=== PATIENT | female | born 1970 | race Caucasian/White ===

== ENCOUNTER 2021-02-23 19:36 | Emergency (ER) | payer BC ==
[2021-02-23 20:17] VITALS: O2SAT 99
[2021-02-23 20:30] LABS: Absolute Neutrophil Ct (ANC) 4.08 (1.4-6.9); Basophil (Absolute #) 0.07 (0-0.4); Eosinophil (Absolute #) 2.02 (0-0.5); Hematocrit 42.6 % (35-47); Hemoglobin 14.1 gm/dl (12.0-16.0); Lymphocyte (Absolute #) 3.63 (1.0-4.6); Lymphocytes % 34.1 % (24.0-44.0); Mean Cell Volume 90.8 fl (78-100); Mean Corpuscular Hemoglobin 30.1 pg (26-32); Mean Corpuscular Hgb Concent. 33.1 g/dl (32-36); Mean Platelet Volume 10.8 fl (7.5-11.0); Monocyte (Absolute #) 0.84 (0.0-1.3); Monocytes % 7.9 % (0.0-12.0); Neutrophil % 38.3 % (36.0-66.0); Platelet Count 342 K/mm3 (150-450); Red Blood Count 4.69 M/mm3 (4.1-5.4); Red Cell Distribution Width 13.9 % (11.5-14.0); White Blood Count 10.6 K/mm3 (4.0-10.5)
[2021-02-23 20:41] LABS: Appearance SLIGHTLY CLOUDY (CLEAR); Bilirubin NEGATIVE (NEGATIVE); Blood SMALL Ery/ul (0-5); Glucose NEGATIVE (NEGATIVE); Ketones NEGATIVE (NEGATIVE); Leukocyte Esterase NEGATIVE (NEGATIVE); Nitrite NEGATIVE (NEGATIVE); Protein,Urine Dip NEGATIVE (Negative); RBC 0-2 /HPF (0-2); Specific Gravity 1.003 (1.005-1.025); Urobilinogen NEGATIVE mg/dL (0-1)
--- NOTE | 2021-02-23 20:52 | ERPHSYRPT ---
- History of Present Illness Time Seen by Provider: 02/23/21 19:44 Source: patient Exam Limitations: no limitations Patient Subjective Stated Complaint: pt states her blood pressure has been high today and she hasnt been feeling well today. pressure was 185/100 Triage Nursing Assessment: pt alert and oriented, answers questions approp. pt ambulatory with steady gait noted. respirations nonlabored with lungs cta. skin warm and dry. heart rate 80 on monitor, sinus rhythm. Physician History: 50 years old female presented to the ER with chief complaint of elevated blood pressure. Patient reports this morning she felt as if she was having some dizziness which lasted for almost an hour and improved. She checked her blood pressure it was 180 systolic. He denies any chest pain palpitations or shortness of breath. She came back from work and rechecked her blood pressure it was still high and currently is 197 systolic. Denies any [id number] cough congestion medication intake but does admit to taking extra salt lately. Per patient her routine blood pressure is well controlled. Timing/Duration: today, constant, gradual onset Severity: moderate Associated Symptoms: No nausea, No vomiting, No abdominal pain, No shortness of breath, No cough, No chest pain, No headaches, No malaise, No weakness Allergies/Adverse Reactions: sulfamethoxazole [From Bactrim] Allergy (Intermediate, Verified 02/23/21 20:17) Rash trimethoprim [From Bactrim] Allergy (Intermediate, Verified 02/23/21 20:17) Rash Hx Tetanus, Diphtheria Vaccination/Date Given: No Hx Influenza Vaccination/Date Given: No Hx Pneumococcal Vaccination/Date Given: No Immunizations Up to Date: No Travel Risk - International Travel Have you traveled outside of the country in past 3 weeks: No - Coronavirus Screening Are you exhibiting any of the following symptoms?: No Close contact with a COVID-19 positive Pt in past 14-21 Days: No - Vaccine Status Have you recieved a Covid-19 vaccination: No - Review of Systems Constitutional: No Symptoms Eyes: No Symptoms Ears, Nose, & Throat: No Symptoms Respiratory: No Symptoms Cardiac: No Symptoms Abdominal/Gastrointestinal: No Symptoms Genitourinary Symptoms: No Symptoms Musculoskeletal: No Symptoms Skin: No Symptoms Neurological: No Symptoms Psychological: No Symptoms Endocrine: No Symptoms Hematologic/Lymphatic: No Symptoms Immunological/Allergic: No Symptoms - Past Medical History Pertinent Past Medical History: No - Past Surgical History Past Surgical History: Yes Gastrointestinal: Appendectomy Other Surgical History: 3 vaginal deliveries,. iud removed december 2020 - Social History Smoking Status: Never smoker Exposure to second hand smoke: Yes Drug Use: none Patient Lives Alone: No - Female History Hx Last Menstrual Period: 3 weeks ago - Nursing Vital Signs Nursing Vital Signs: Initial Vital Signs Temperature 99.2 F 02/23/21 19:52 Pulse Rate 82 02/23/21 19:52 Respiratory Rate 16 02/23/21 19:52 Blood Pressure 197/103 02/23/21 19:52 O2 Sat by Pulse Oximetry 99 02/23/21 19:52 Pain Scale Pain Intensity 0 - Physical Exam General Appearance: no apparent distress, alert Eye Exam: PERRL/EOMI, eyes nml inspection Ears, Nose, Throat Exam: normal ENT inspection, TMs normal, pharynx normal, moist mucous membranes Neck Exam: normal inspection, non-tender, supple, full range of motion Respiratory Exam: normal breath sounds, lungs clear Cardiovascular Exam: regular rate/rhythm, normal heart sounds Gastrointestinal/Abdomen Exam: soft, normal bowel sounds, No tenderness Back Exam: normal inspection, normal range of motion, No CVA tenderness Extremity Exam: normal inspection, normal range of motion, pelvis stable Neurologic Exam: alert, oriented x 3, cooperative, failure analysis engineer II-XII nml as tested, normal mood/affect, nml cerebellar function, nml station & gait, sensation nml, No motor deficits Skin Exam: normal color SpO2 Interpretation: normal SpO2: 99 O2 Delivery: Room Air Ordered Tests: Active Orders 24 hr Category Date Time Status Door Opener STAT Care 02/23/21 20:07 Active EKG-ER Only STAT Care 02/23/21 20:06 Active IV Insertion STAT Care 02/23/21 20:06 Active CHEST 1 VIEW (PORTABLE) Stat Exams 02/23/21 20:07 Taken CBC W DIFF Stat Lab 02/23/21 20:20 Completed CMP Stat Lab 02/23/21 20:20 Completed NT PRO BNP Stat Lab 02/23/21 20:20 Completed TROPONIN Q3H Lab 02/23/21 20:20 Completed TROPONIN Q3H Lab 02/23/21 23:15 Ordered TROPONIN Q3H Lab 02/24/21 02:15 Ordered TROPONIN Q3H Lab 02/24/21 05:15 Ordered TROPONIN Q3H Lab 02/24/21 08:15 Ordered UA W/RFX UR CULTURE Stat Lab 02/23/21 20:20 Completed Medication Summary Discontinued Medications Generic Name Dose Route Start Last Admin Trade Name Yovany PRHeena Reason Stop Dose Admin Clonidine 0.2 mg 02/23/21 21:07 02/23/21 21:11 Clonidine Hcl 0.1 Mg Tablet PO 02/23/21 21:08 0.2 mg STAT ONE Administration Clonidine Confirm 02/23/21 21:10 Clonidine Hcl 0.1 Mg Tablet Administered 02/23/21 21:11 Dose 0.2 mg .ROUTE .STK-MED ONE Lab/Rad Data: Laboratory Result Diagrams 02/23/21 20:20 02/23/21 20:20 Laboratory Results 02/23/21 02/23/21 02/23/21 Range/Units 20:20 20:20 20:20 WBC (4.0-10.5) K/mm3 RBC (4.1-5.4) M/mm3 Hgb (12.0-16.0) gm/dl Hct (35-47) % MCV (78-100) fl MCH (26-32) pg MCHC (32-36) g/dl RDW (11.5-14.0) % Plt Count (150-450) K/mm3 MPV (7.5-11.0) fl Gran % (36.0-66.0) % Eos # (Auto) (0-0.5) Absolute Lymphs (auto) (1.0-4.6) Absolute Monos (auto) (0.0-1.3) Lymphocytes % (24.0-44.0) % Monocytes % (0.0-12.0) % Eosinophils % (0.00-5.0) % Basophils % (0.0-0.4) % Absolute Granulocytes (1.4-6.9) Basophils # (0-0.4) Sodium 140 (137-145) mmol/L Potassium 3.7 (3.5-5.1) mmol/L Chloride 103 (98-107) mmol/L Carbon Dioxide 27 (22-30) mmol/L Anion Gap 13.0 (5-15) MEQ/L BUN 11 (7-17) mg/dL Creatinine 0.82 (0.52-1.04) mg/dL Estimated GFR > 60.0 ML/MIN Glucose 89 (74-106) mg/dL Calcium 9.5 (8.4-10.2) mg/dL Total Bilirubin 0.50 (0.2-1.3) mg/dL AST 30 (14-36) U/L ALT 28 (0-35) U/L Alkaline Phosphatase 88 (38-126) U/L Troponin I < 0.012 (0.000-0.034) ng/mL NT-Pro-B Natriuret Pep 49.1 (0-900) pg/mL Serum Total Protein 8.0 (6.3-8.2) g/dL Albumin 4.5 (3.5-5.0) g/dL Urine Color YELLOW (YELLOW) Urine Appearance SLIGHTLY CLOUDY (CLEAR) Urine pH 6.0 (5-6) Ur Specific [place] 1.003 (1.005-1.025) Urine Protein NEGATIVE (Negative) Urine Ketones NEGATIVE (NEGATIVE) Urine Blood SMALL (0-5) [place]/ul Urine Nitrite NEGATIVE (NEGATIVE) Urine Bilirubin NEGATIVE (NEGATIVE) Urine Urobilinogen NEGATIVE (0-1) mg/dL Ur Leukocyte Esterase NEGATIVE (NEGATIVE) Urine WBC (Auto) NONE (0-5) /HPF Urine RBC (Auto) 0-2 (0-2) /HPF U Epithel Cells (Auto) NONE (FEW) /HPF Urine Bacteria (Auto) NONE (NEGATIVE) /HPF Urine Culture Reflexed NO (NO) Urine Glucose NEGATIVE (NEGATIVE) mg/dL 02/23/21 Range/Units 20:20 WBC 10.6 H (4.0-10.5) K/mm3 RBC 4.69 (4.1-5.4) M/mm3 Hgb 14.1 (12.0-16.0) gm/dl Hct 42.6 (35-47) % MCV 90.8 (78-100) fl MCH 30.1 (26-32) pg MCHC 33.1 (32-36) g/dl RDW 13.9 (11.5-14.0) % Plt Count 342 (150-450) K/mm3 MPV 10.8 (7.5-11.0) fl Gran % 38.3 (36.0-66.0) % Eos # (Auto) 2.02 H (0-0.5) Absolute Lymphs (auto) 3.63 (1.0-4.6) Absolute Monos (auto) 0.84 (0.0-1.3) Lymphocytes % 34.1 (24.0-44.0) % Monocytes % 7.9 (0.0-12.0) % Eosinophils % 19.0 H (0.00-5.0) % Basophils % 0.7 (0.0-0.4) % Absolute Granulocytes 4.08 (1.4-6.9) Basophils # 0.07 (0-0.4) Sodium (137-145) mmol/L Potassium (3.5-5.1) mmol/L Chloride (98-107) mmol/L Carbon Dioxide (22-30) mmol/L Anion Gap (5-15) MEQ/L BUN (7-17) mg/dL Creatinine (0.52-1.04) mg/dL Estimated GFR ML/MIN Glucose (74-106) mg/dL Calcium (8.4-10.2) mg/dL Total Bilirubin (0.2-1.3) mg/dL AST (14-36) U/L ALT (0-35) U/L Alkaline Phosphatase (38-126) U/L Troponin I (0.000-0.034) ng/mL NT-Pro-B Natriuret Pep (0-900) pg/mL Serum Total Protein (6.3-8.2) g/dL Albumin (3.5-5.0) g/dL Urine Color (YELLOW) Urine Appearance (CLEAR) Urine pH (5-6) Ur Specific [place] (1.005-1.025) Urine Protein (Negative) Urine Ketones (NEGATIVE) Urine Blood (0-5) [place]/ul Urine Nitrite (NEGATIVE) Urine Bilirubin (NEGATIVE) Urine Urobilinogen (0-1) mg/dL Ur Leukocyte Esterase (NEGATIVE) Urine WBC (Auto) (0-5) /HPF Urine RBC (Auto) (0-2) /HPF U Epithel Cells (Auto) (FEW) /HPF Urine Bacteria (Auto) (NEGATIVE) /HPF Urine Culture Reflexed (NO) Urine Glucose (NEGATIVE) mg/dL - Progress Progress: improved Progress Note: 02/23/21 22:11 Patient has nonfocal neuro exam throughout stay in the ER. EKG showed normal sinus rhythm without any ischemic changes. Negative troponin, grossly unremarkable chemistries. Chest x-ray reviewed by me did not reveal any obvious cardiopulmonary findings. Official report is pending. Given clonidine and blood pressure improved. I believe patient has hypertension and will start her on low-dose Cozaar and outpatient follow-up. Recommended low-salt diet and exercise. Discussed signs symptoms of worsening needing return to ER which she seems understanding. Counseled pt/family regarding: lab results, diagnosis, need for follow-up, rad results - Departure Departure Disposition: Home Clinical Impression: Uncontrolled hypertension Condition: Stable Critical Care Time: No Referrals: CHRISTEL GASTELUM [Primary Care Provider] - Follow Up with PCP/3 days Instructions: Malignant Hypertension (DC) Additional Instructions: Monitor your blood pressure regularly, keep a log and follow-up with primary care for reevaluation. Take low-salt diet, regular exercise. Take your blood pressure medications regularly. Do not take blood pressure medication if your systolic blood pressure is less than 120. Prescriptions: Losartan Potassium [Cozaar] 25 mg PO DAILY 30 Days #30 tablet
[2021-02-23] MEDS ORDERED: Catapres 0.1 MG PO ONE (21:07)
[2021-02-23] MEDS ORDERED: Catapres 0.1 MG ONE (21:10)
[2021-02-23 21:22] LABS: ALBUMIN 4.5 g/dL (3.5-5.0); ALKALINE PHOSPHATASE 88 U/L (38-126); BLOOD UREA NITROGEN 11 mg/dL (7-17); CHLORIDE 103 mmol/L (98-107); Calcium 9.5 mg/dL (8.4-10.2); Carbon Dioxide 27 mmol/L (22-30); Creatinine 1 0.82 mg/dL (0.52-1.04); EST GLOMERULAR FILTRATION RATE > 60.0 ML/MIN; Glucose 89 mg/dL (74-106); NT PRO BNP 49.1 pg/mL (0-900); Potassium 3.7 mmol/L (3.5-5.1); SGOT/AST 30 U/L (14-36); SGPT/ALT 28 U/L (0-35); SODIUM 140 mmol/L (137-145)
[2021-02-23 22:56] VITALS: BP 146/74; PULSE 74
[2021-02-24 00:44] LABS: Slide Review 1 YES
--- NOTE | 2021-02-24 08:38 | XRAY ---
Indication: Hypertension. Comparison: None Portable chest demonstrates normal heart and lungs. Bony thorax intact.
== END 2021-02-23 22:35 | disposition home or self-care (01) ==
LOC: ED 19:36
DX: I10 Essential (primary) hypertension (principal)
CPT/HCPCS: 36000; 36415; 71045; 80053; 81001; 83880; 84484; 85025; 93005; 93041; 99284; A9270-GY